=== PATIENT | female | born 1950 | race Caucasian/White ===

== ENCOUNTER → 2020-11-02 10:34 | Outpatient (CLI) | payer MEDICARE, SELFPAY ==
--- NOTE | 2020-11-02 10:45 | XR_ITS ---
PROCEDURE: XR HIP LT 2-3V W/PELVIS CLINICAL INDICATION: pain COMPARISON: No exams were available for comparison FINDINGS: Minor degenerative changes of the left hip joint with subchondral sclerosis noted. Heterotopic ossification noted at the greater trochanter. No acute fractures or dislocations. Bone density is normal. Multilevel degenerative changes of the visualized lumbar spine. No significant soft tissue abnormality. IMPRESSION: No acute fractures or dislocations. Dictated by: Polina Lyon 11/02/2020 12:21 Polina Lyon in [facility] 11/02/2020 12:21
--- NOTE | 2020-11-02 10:45 | XR_ITS ---
PROCEDURE: XR KNEE RT 3V CLINICAL INDICATION: knee pain COMPARISON: No exams were available for comparison FINDINGS: No acute fractures or dislocations. Bone density is normal. Tricompartmental degenerative changes are noted with osteophyte formation causes moderate joint space loss and subchondral sclerosis. Mild medial subluxation noted. There is moderate suprapatellar joint effusion. No other soft tissue abnormality. IMPRESSION: Tricompartmental moderate degenerative changes with mild medial subluxation. Dictated by: Polina Lyon 11/02/2020 12:19 Polina Lyon in [facility] 11/02/2020 12:19
[2020-11-02 15:55] LABS: Basophils # 0.1 K/mm3 (0-0.2); Basophils % 1.6 % (0.1-2.0); Eosinophils # 0.1 K/mm3 (0.0-0.4); Eosinophils % 0.9 % (0.1-12.0); Hematocrit 43.9 % (37.0-47.0); Hemoglobin 14.8 g/dL (12.2-16.2); Lymphocytes # 1.7 K/mm3 (0.7-4.5); Lymphocytes % 24.8 % (10-50); Mean Corpuscular HGB Conc 33.7 g/dL (31.8-35.4); Mean Corpuscular Hemoglobin 29.1 pg (27.0-31.2); Mean Corpuscular Volume 86.2 fl (81-99); Monocytes # 0.5 K/mm3 (0.1-1.0); Monocytes % 6.7 % (1.7-9.3); Neutrophils # 4.6 K/mm3 (1.8-7.8); Neutrophils % 66.1 % (37.0-80.0); Platelet Count 347 K/mm3 (142-424); Red Blood Count 5.09 M/mm3 (4.20-5.40); Red Cell Distribution Width 13.8 % (11.5-17.5); White Blood Count 6.9 K/mm3 (4.8-10.8)
[2020-11-02 16:00] LABS: Alanine Aminotransferase 12 U/L (12-78); Albumin Level 4.7 g/dl (3.5-5.0); Albumin/Globulin Ratio 1.5 (1.1-1.8); Alkaline Phosphatase 53 U/L (38-126); Anion Gap 13.7 mEq/L (5-15); Aspartate Amino Transferase 22 U/L (14-36); Bilirubin,Total 1.6 mg/dl (0.2-1.3); Blood Urea Nitrogen 25 mg/dl (7-17); Calcium 9.9 mg/dl (8.4-10.2); Carbon Dioxide 25 mmol/L (22.0-30.0); Chloride 107 mmol/L (98-107); Chol/HDL Ratio 4.7 (1-3.5); Cholesterol 193 mg/dl (140-200); Estimated Glomerular Filt Rate 49 ml/min (>60); GFR (African American) 59 ML/MIN (>60); Globulin 3.2 g/dL (1.3-3.2); Glucose 122 mg/dl (74-100); HDL Cholesterol 41 mg/dl (40-60); Potassium 4.7 mmoL/L (3.5-5.1); Sodium 141 mmol/L (136-145); Total Protein,Serum 7.9 g/dl (6.3-8.2); Triglycerides 119 mg/dl (30-150); VLDL Cholesterol 24 mg/dL (0-40)
[2020-11-02 16:10] LABS: Direct LDL Cholesterol 121.37 mg/dL (100-129)
[2020-11-02 16:16] LABS: 25-OH Vitamin D, Total 48.6 ng/mL (30-100)
[2020-11-02 16:17] LABS: T4 (Thyroxine) 10.4 ug/dl (5.53-11.0)
[2020-11-02 16:49] LABS: Vitamin B12 966 pg/mL (239-931)
== END ==
PROVIDERS: PCP Family Medicine; Visit Provider Family Medicine
DX: M25.561 Pain in right knee (principal); M54.9 Dorsalgia, unspecified; E78.5 Hyperlipidemia, unspecified; I10 Essential (primary) hypertension; R60.9 Edema, unspecified; E11.9 Type 2 diabetes mellitus without complications; E55.9 Vitamin D deficiency, unspecified; M25.552 Pain in left hip
CPT/HCPCS: 73502; 73562; 80053; 80061; 82306; 82607; 83036; 84436; 84443; 85025

== ENCOUNTER 2023-10-01 18:20 | Outpatient (CLI) | payer MEDICARE, SELFPAY ==
[2023-10-01 18:16] LABS: Coronavirus 19, PCR Not Detected (NotDetected); Influenza A, PCR Not Detected (NotDetected); Influenza B, PCR Not Detected (NotDetected)
== END 2023-10-01 23:59 ==
LOC: LAB.DROPOF 10-02 10:24
PROVIDERS: PCP Nurse Practitioner; Visit Provider Nurse Practitioner
DX: J06.9 Acute upper respiratory infection, unspecified (principal); R51.9 Headache, unspecified; R42 Dizziness and giddiness; R11.2 Nausea with vomiting, unspecified
CPT/HCPCS: 87636

== ENCOUNTER 2024-01-15 14:33 | Outpatient (CLI) | payer MEDICARE, SELFPAY ==
[2024-01-15 18:30] LABS: Basophils # 0.1 K/mm3 (0-0.2); Basophils % 1.7 % (0.1-2.0); Eosinophils # 0.1 K/mm3 (0.0-0.4); Eosinophils % 2.5 % (0.1-12.0); Hematocrit 44.8 % (37.0-47.0); Hemoglobin 14.7 g/dL (12.2-16.2); Lymphocytes # 1.4 K/mm3 (0.7-4.5); Lymphocytes % 27.7 % (10-50); Mean Corpuscular HGB Conc 32.9 g/dL (31.8-35.4); Mean Corpuscular Hemoglobin 30.1 pg (27.0-31.2); Mean Corpuscular Volume 91.4 fl (81-99); Monocytes # 0.5 K/mm3 (0.1-1.0); Monocytes % 9.4 % (1.7-9.3); Neutrophils % 58.7 % (37.0-80.0); Platelet Count 299 K/mm3 (142-424); Red Cell Distribution Width 13.7 % (11.5-17.5); White Blood Count 5.1 K/mm3 (4.8-10.8)
[2024-01-15 18:50] LABS: Alanine Aminotransferase 13 U/L (12-78); Albumin Level 4.1 g/dl (3.5-5.0); Albumin/Globulin Ratio 1.3 (1.1-1.8); Alkaline Phosphatase 47 U/L (38-126); Anion Gap 13.2 mEq/L (5-15); Aspartate Amino Transferase 25 U/L (14-36); Blood Urea Nitrogen 21 mg/dl (7-17); Calcium 9.7 mg/dl (8.4-10.2); Carbon Dioxide 23 mmol/L (22.0-30.0); Chloride 112 mmol/L (98-107); Cholesterol 219 mg/dl (140-200); Estimated Glomerular Filt Rate 44 ml/min (>60); GFR (African American) 53 ML/MIN (>60); Globulin 3.2 g/dL (1.3-3.2); Glucose 94 mg/dl (74-100); HDL Cholesterol 44 mg/dl (40-60); Potassium 5.2 mmoL/L (3.5-5.1); Sodium 143 mmol/L (136-145); Total Protein,Serum 7.3 g/dl (6.3-8.2); Triglycerides 103 mg/dl (30-150); VLDL Cholesterol 21 mg/dL (0-40)
[2024-01-15 19:01] LABS: Direct LDL Cholesterol 140.25 mg/dL (100-129)
[2024-01-15 19:19] LABS: Thyroid Stimulating Hormone 3.07 uIU/mL (0.465-4.68)
[2024-01-15 19:43] LABS: Hemoglobin A1C 4.9 % (4.0-6.0)
== END 2024-01-15 23:59 | disposition home or self-care (01) ==
LOC: LAB.DROPOF 01-18 14:34
PROVIDERS: PCP Family Medicine; Visit Provider Family Medicine
DX: E11.9 Type 2 diabetes mellitus without complications (principal); E78.5 Hyperlipidemia, unspecified; I10 Essential (primary) hypertension
CPT/HCPCS: 80050; 80053; 80061; 83036; 84443; 85025

== ENCOUNTER 2024-04-18 11:40 | Outpatient (CLI) | payer MEDICARE, SELFPAY ==
[2024-04-18 19:00] LABS: Alanine Aminotransferase 17 U/L (12-78); Albumin Level 4.3 g/dl (3.5-5.0); Albumin/Globulin Ratio 1.4 (1.1-1.8); Alkaline Phosphatase 44 U/L (38-126); Anion Gap 20.5 mEq/L (5-15); Aspartate Amino Transferase 25 U/L (14-36); Bilirubin,Total 1.6 mg/dl (0.2-1.3); Blood Urea Nitrogen 21 mg/dl (7-17); Calcium 9.3 mg/dl (8.4-10.2); Carbon Dioxide 20 mmol/L (22.0-30.0); Chloride 106 mmol/L (98-107); Estimated Glomerular Filt Rate 54 ml/min (>60); GFR (African American) 66 ML/MIN (>60); Glucose 87 mg/dl (74-100); Potassium 4.5 mmoL/L (3.5-5.1); Sodium 142 mmol/L (136-145); Total Protein,Serum 7.3 g/dl (6.3-8.2)
== END 2024-04-18 23:59 | disposition home or self-care (01) ==
LOC: LAB.DROPOF 04-19 15:15
PROVIDERS: PCP Family Medicine; Visit Provider Family Medicine
DX: I10 Essential (primary) hypertension (principal)
CPT/HCPCS: 80053

== ENCOUNTER 2024-06-07 19:04 | Outpatient (CLI) | payer MEDICARE, SELFPAY ==
[2024-06-07 19:25] LABS: Microscopic, Urine URINE MICROSCOPIC (MICROSCOPIC)
[2024-06-07 19:27] LABS: Appearance,Urine CLEAR (Clear); Bilirubin,Urine Negative (Negative); Blood, Urine Negative (Negative); Color,Urine YELLOW (Yellow); Glucose,Urine (UA) Negative (Negative); Ketones,Urine Negative (Negative); Leukocyte Esterase,Urine 1+ (Negative); Nitrate,Urine Negative (Negative); Protein,Urine Negative (Negative)
[2024-06-07 20:36] LABS: RBC,Urine Occasional #/hpf (0-3)
[2024-06-07 20:37] LABS: Amorphous Sediment,Urine 1+ /lpf; Bacteria,Urine 1+ /lpf
== END 2024-06-07 23:59 | disposition home or self-care (01) ==
LOC: LAB.DROPOF 19:05
PROVIDERS: PCP Family Medicine; Visit Provider Family Medicine
DX: N39.0 Urinary tract infection, site not specified (principal)
CPT/HCPCS: 81001; 87086; 87088; 87186